=== PATIENT | female | born 1990 | race Caucasian/White ===

== ENCOUNTER → 2019-11-15 12:50 | Outpatient (BNVA) | payer MEDICAID, SELFPAY | PROVIDERS: Visit Provider Obstetrics & Gynecology | DX: Z32.01 Encounter for pregnancy test, result positive (principal) | CPT/HCPCS: 81025 ==

== ENCOUNTER 2021-10-23 23:07 | Inpatient (IN) | payer BC, MEDICAID, SELFPAY ==
[2021-10-23 22:47] VITALS: BP 138/88; PULSE 75
[2021-10-23 22:50] VITALS: BMI 54.9
[2021-10-23 22:56] VITALS: RESP 18
[2021-10-23 23:06] LABS: Basophils % 0.2 %; Eosinophils % 0.4 %; Hematocrit 35.8 % (37.0-47.0); Hemoglobin 11.4 g/dL (11.5-15.3); Lymphocytes # 1.9 10^3/uL (0.8-4.8); Lymphocytes % 19.7 %; Mean Corpuscular HGB Conc 31.8 g/dL (30.0-36.0); Mean Corpuscular Hemoglobin 27.8 pg (28.0-34.0); Mean Corpuscular Volume 87.3 fl (81-99); Mean Platelet Volume 13.5 fL (7.4-10.4); Monocytes # 0.5 10^3/uL (0.2-0.9); Monocytes % 5.4 %; Neutrophils # 7.05 10^3/uL (1.8-7.7); Neutrophils % 73.9 %; Nucleated Red Blood Cells % 0 %; Platelet Count 174 10^3/cmm (130-400); Red Cell Distribution Width 15.3 % (12.1-15.1); White Blood Count 9.6 10^3/uL (4.0-10.0)
[2021-10-24] VITALS (133 sets, daily range): BP systolic 118–153; BP diastolic 57–98; PULSE 62–96; TEMP 35.9–36.6; O2SAT 93–98
--- NOTE | 2021-10-24 00:18 | XRR_ITS ---
PROCEDURE INFORMATION: Exam: XR Abdomen Exam date and time: 10/24/2021 12:27 AM Age: 31 years old Clinical indication: Screening exam; Post surgical status; Patient HX: Instrument/sponge check S/P emergency csection. ; Additional info: Post op stat c section TECHNIQUE: Imaging protocol: XR of the abdomen. Views: Frontal supine view of the abdomen. 1 View. COMPARISON: No relevant prior studies available. FINDINGS: Gastrointestinal tract: No bowel dilation. Bones/joints: There is diastasis of the pubic symphysis. Bones are otherwise unremarkable. Soft tissues: No radiopaque foreign body. XR/XR abdomen 1V* [id number] IMPRESSION: No radiopaque foreign body.
--- NOTE | 2021-10-24 01:03 | P.PCNOB_ITS ---
Delivery Note: Date of delivery: October 24, 2021 Pre-delivery diagnoses: Term . No care Post-delivery diagnoses: Term delivered Procedure: Emergency repeat low transverse delivery Delivering Physician: Cornelio Rojas MD Estimated blood loss (mL): 800 Pre-Delivery Course: Mrs. Torres 31-year-old female with 2 previous deliveries and 0nd with an EGA of approximately 41+4 weeks appr oximately as patietn refers unknow LMP but know she conceived on 21 January 2021 with no care came to labor and delivery in active labor with a dilation of 8 cm 100% effacement -4. Delivery: I was called by the nurse informing the patient was 9 cm in dilation. Upon my arrival the Labor and Delivery and examined the patient she was fully dilated 100% effacement but at a station of -4, and umbilical cord could be felt on My hand supporting the 's head off the umbilical cord. The patient was immediately told not to push but she did not complied and she kept pushing when the forward bag ruptured and amniotic fluid with meconium was noted when the umbilical cord prolapsed. Her and her were immediately informed of the emergency and the patient was taken to the operating room and general anesthesia was initiated. She was placed in the dorsal supine position with a left lateral tilt. The abdomen was prepped and draped in the usual sterile manner. A Pfannenstiel skin incision was made with the scalpel and carried through to the underlying layer of fascia with the Bovie. The fascia was nicked in the midline and the incision extended laterally with several different scissors that seemed to not cut. The superior aspect of the fascial incision was then grasped with Mayelin clamps and elevated and the underlying rectus muscle dissected off bluntly. Attention was then turned to the inferior aspect of the incision which, in similar fashion, was grasped and tented up with Mayelin clamps and the rectus muscle dissected bluntly. The rectus muscles were then in the midline and the peritoneum identified, tented up and entered sharply with Metzenbaum scissors. The peritoneal incision was then extended superiorly and inferiorly with good visualization of the bladder. A small windows of dehicense was noted on the uterus. The uterus was incised in a low transverse fashion with the scalpel. The uterine incision was then extended with the bandage scissors. The infant was then delivered in the cephalic presentation atraumatically at 2351 hours. The nose and the mouth were suctioned with bulb and the cord clamped and cut. And the infant was handed over immediately to the manager heavy equipment on-call. The cord was normal and had three vessels. Amniotic fluid was with meconium. APGARs 8/8. The placenta was then removed manually and the uterus exteriorized and cleared of all clots and debris. The uterine incision was repaired with 0 Vicryl in a running-locked fashion. A second layer of the same suture was used to obtain excellent hemostasis. The gutters were cleared of all clots. Excellent hemostasis was noted. The uterus was then returned to the abdomen. The rectus muscles were approximated with 3-0 chromic gut. The fascia was reapproximated with 0 Vicryl in an interrupted midlock running fashion. The skin was closed with Insorb?s subcuticular absorbable suresh. The patient tolerated the procedure well. The sponge, lap and needle counts were correct times three. X-ray of the abdomen showed no instruments or laps. History History History 3 Term 2 Miscarriages/Ectopic 0 0 Living Children 2 A&P Assessment and plan (1) No care in current : Status: Acute (2) Term delivered: Status: Acute (3) Previous delivery affecting : Status: Acute Coding Level of Care Code Acute Electrical Controls Designer for Chg Fwd Diagnoses No care in current O09.30 Term delivered O80 Previous delivery affecting O34.219
[2021-10-24 02:43] LABS: Amphetamines Screen Urine Negative (Negative); Barbiturates Screen Urine Negative (Negative); Benzodiazepines Screen Urine Negative (Negative); Cocaine Screen Urine Negative (Negative); Opiate Screen Urine Negative (Negative); PCP Screen Urine Negative (Negative); THC Screen Urine Negative (Negative)
[2021-10-24] MEDS: dextrose 5%-lactated ringers 1,000 ML 125 ML IV ×2 (05:44→14:11)
--- NOTE | 2021-10-24 05:54 | PC.NURSE ---
IV patent and intact, patient demands removal of IV at this time. IV in L hand remains.
[2021-10-24] MEDS: ketorolac 30 mg/mL INJ IVP ×3 (07:34→21:06)
--- NOTE | 2021-10-24 08:31 | ANE.PACU2 ---
Inpatient post-anesthesia follow up: Airway intact: Yes Vital signs: Temperature 96.6 F Pulse Rate 79 Respiratory Rate 18 Blood Pressure 124/67 Pulse Oximetry 96 Oxygen Delivery Me thod Room Air Oxygen Flow Rate Fraction of Inspir ed Oxygen Hydration adequate: Yes Nausea and vomiting: No Pain level: 4 Mental status: Baseline
--- NOTE | 2021-10-24 08:56 | PC.NURSE ---
No care after 7 weeks
[2021-10-24] MEDS: HYDROcodone-acetaminophen 5-325 mg Tablet PO ×2 (13:22→18:16)
[2021-10-24 16:22] LABS: Hematocrit 28.2 % (37.0-47.0); Hemoglobin 8.9 g/dL (11.5-15.3); Mean Corpuscular HGB Conc 31.6 g/dL (30.0-36.0); Mean Corpuscular Hemoglobin 27.9 pg (28.0-34.0); Mean Corpuscular Volume 88.4 fl (81-99); Platelet Count 155 10^3/cmm (130-400); Red Blood Count 3.19 10^6/uL (4.1-5.3); Red Cell Distribution Width 15.3 % (12.1-15.1); White Blood Count 10.3 10^3/uL (4.0-10.0)
[2021-10-24 16:24] LABS: Mean Platelet Volume 13.5 fL (7.4-10.4)
[2021-10-24] MEDS: docusate sodium 100 mg Capsule PO (18:15)
[2021-10-24] MEDS: ferrous sulfate EC 325 mg Tablet PO (18:16)
[2021-10-25] VITALS (9 sets, daily range): BP systolic 126–142; BP diastolic 71–79; PULSE 83–103; RESP 16–18; TEMP 36–36.3; O2SAT 97
--- NOTE | 2021-10-25 01:57 | PM.OBGYHP ---
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 Declined repeat cesaren delivery but EMERGENCY CD performed. Present Details : 4 Para: 3 Review of Systems General: Reports: 10 or more systems reviewed and unremarkable except in HPI and below Const: Denies: fever(s) or chills ENMT: Denies: throat pain Card: Denies: chest pain Resp: Denies: dyspnea, productive cough or non-productive cough GI: Reports: abdominal pain (contractions) : Reports: pelvic pain (contractions); Denies: flank pain, difficulty voiding, dysuria, urinary frequency, urinary urgency, urinary incontinence, genital lesions, genital pruritis, vaginal dryness, vaginal odor, vaginal bleeding, vaginal discharge, dysmenorrhea, irregular period, metrorrhagia, amenorrhea, prolapse symptoms or dyspareunia Psych: Reports: anxiety and mood swings Medications/Allergies Home Medications Medication Instructions Recorded Confirmed Last Taken Type No Known Home Medications 10/24/21 10/24/21 Unknown History Allergies Allergy/AdvReac Type Severity Reaction Status Date / Time adhesive tape Allergy Skin Verified 10/24/21 04:30 irritation 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 PFSH: Medical History (Updated 10/26/21 @ 09:24 by Cornelio Rojas MD) 15 weeks gestation of Morbid obesity with BMI of 40.0-44.9, adult Surgical History (Updated 10/25/21 @ 17:51 by Cornelio Rojas MD) H/O section 1--06/2014 2--07/2015 H/O wisdom tooth extraction (~2009) Family History Grandmother Diabetes Paternal grandmother Breast cancer Paternal grandmother- dx at 60 y/o Maternal grandmother- dx at 60 y/o Colon cancer Paternal grandmother Family history of thyroid problem Paternal grandmother Maternal grandmother Denies family history of Ovarian cancer Heart disease Hyperlipidemia Hypertension Uterine cancer Stroke Social History Smoking and tobacco status: never smoked Alcohol intake: never History History History 3 Term 2 Miscarriages/Ectopic 0 0 Living Children 2 Care DENZEL 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 Lungs: Clear to auscultation bilaterally. Heart: Regular rhythm and rate. Abdomen: Gravid, full the height equals dates, nontender. 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 Extremities: no edema, no cyanosis, no calves pain. heart tracing: Basal rate: 100 bpm, Variability: moderate, Accelerations: present, Decelerations: early, Contraction: q3min. Urinary Catheter Management: Guerra Latex: Cath Placed During This Visit: yes, but has since been removed by the nurse Reason for Continuing Indwelling Catheter: Decision to DC Catheter Urinary Catheter Date of Insertion: 10/24/21 Urinary Catheter Time of Insertion: 00:45 Date Urinary Catheter Removed: 10/24/21 Time Urinary Catheter Discontinued: 16:30 Data : 10/24/21 16:10 A&P Assessment and plan (1) Active labor at term: No care came to labor and delivery in active labor. Dilation of 10 cm, 100% effacement, station -4. Cord prolapse, emergency delivery. Status: Acute (2) Previous delivery affecting : Status: Acute (3) No care in current : Status: Acute Attestations Medical Necessity Statement*: In my professional opinion per admitting diagnosis Coding Level of Care Code Acute Cloud Systems Architect for g Fwd Diagnoses Active labor at term Previous delivery affecting O34.219 No care in current O09.30
[2021-10-25] MEDS: HYDROcodone-acetaminophen 5-325 mg Tablet PO ×4 (04:29→18:03)
[2021-10-25] MEDS: ferrous sulfate EC 325 mg Tablet PO ×2 (08:48→18:03)
[2021-10-25] MEDS: docusate sodium 100 mg Capsule PO ×2 (08:48→18:03)
[2021-10-25] MEDS: prenatal vitamin Capsule 1 CAP PO (08:49)
[2021-10-25] MEDS: ibuprofen 800 mg tablet PO ×2 (15:20→21:18)
--- NOTE | 2021-10-25 17:48 | P.PN_ITS ---
Subjective Subjective: Mrs. Dary Trujillo 31-year-old female status post repeat delivery postoperative day 1. Refers being a little tender Vitals/I&O/Wt Last Vital Signs Temp 97.3 F L 10/25/21 15:16 Pulse 94 10/25/21 15:17 Resp 17 10/25/21 15:17 BP 126/75 10/25/21 15:16 Pulse Ox 97 10/25/21 15:17 10/25/21 10/25/21 10/25/21 06:59 14:59 22:59 Intake Total 600 / 600 Output Total 600 / 2600 800 / 800 Balance -600 / -510.417 -200 / -200 Weight last 48 hrs Weight 140.614 kg Physical Exam Narrative: GA: Alert and oriented ?3. HEENT: WNL. Heart: Regular rate and rhythm. Breasts: engorged Nipples - skin intact Lungs: Clear to auscultation bilaterally. Abdomen: Bowel sounds present, minimal tenderness, incision clean and dry, no redness, pain or edema. Uterine fundus below umbilicus. No Fundal Tenderness. 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 Extremities: No edema, no cyanosis, no calves pain. Urinary Catheter Management: Guerra Latex: Cath Placed During This Visit: yes, but has since been removed by the nurse Reason for Continuing Indwelling Catheter: Decision to DC Catheter Urinary Catheter Date of Insertion: 10/24/21 Urinary Catheter Time of Insertion: 00:45 Date Urinary Catheter Removed: 10/24/21 Time Urinary Catheter Discontinued: 16:30 Data : 10/24/21 16:10 A&P Assessment and plan (1) Status post delivery: Posterior 31-year-old female status post repeat low transverse delivery postop day 1. She is afebrile and hemodynamically stable. Tolerating diet well. Ambulating without difficulty. Breast-feeding without difficulty. Status: Acute (2) Term delivered: Status: Acute Plan Continue postop observation. Encourage ambulation. Progress diet. Attestations Medical Necessity Statement*: In my professional opinion per admitting diagnosis Coding Level of Care Code Acute Systematic Theology Professor for Chg Fwd Diagnoses Status post delivery Z98.891 Term delivered O80
[2021-10-26] VITALS (8 sets, daily range): BP systolic 134–161; BP diastolic 73–91; PULSE 77–103; RESP 16; TEMP 36–36.5
[2021-10-26] MEDS: HYDROcodone-acetaminophen 5-325 mg Tablet PO ×2 (04:59→11:17)
[2021-10-26] MEDS: ferrous sulfate EC 325 mg Tablet PO (08:25)
[2021-10-26] MEDS: ibuprofen 800 mg tablet PO (08:25)
[2021-10-26] MEDS: prenatal vitamin Capsule 1 CAP PO (08:25)
[2021-10-26] MEDS: docusate sodium 100 mg Capsule PO (08:25)
--- NOTE | 2021-10-26 09:30 | PM.OBGYDC ---
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 Torres 31-year-old female with 2 previous deliveries and and 1 with an EGA of approximately 41+4 weeks approximately as the patient refers unknow LMP but know she conceived on 21 January 2021. With no care she came to labor and delivery in active labor with a dilation of 8 cm 100% effacement -4. She progressed rapidly. During examination when the patient was prepared for delivery intact membranes felt with umbilical cord. The patient instructed not to push but she did and the membranes rupture resulting in cord prolapse and an emergency delivery was performed complicated by faulty instruments scissors not working which delayed delivery. She delivered a male infant Apgars 8/8 with a birthweight of 4470 g. She is afebrile and hemodynamically stable postoperative day 2. Tolerating diet well. Ambulating without difficulty. Breast-feeding without difficulty. Refer will be getting a vasectomy for contraception. Information Peripartum Data: Delivery Method: Physical Exam Narrative: GA: Alert and oriented ?3. HEENT: WNL. Heart: Regular rate and rhythm. Breasts: engorged Nipples - skin intact Lungs: Clear to auscultation bilaterally. Abdomen: Bowel sounds present, minimal tenderness, incision clean and dry, no redness, pain or edema. Uterine fundus below umbilicus. No Fundal Tenderness. RECOVERY ROOM NURSE: normal lochia. Extremities: No edema, no cyanosis, no calves pain. Urinary Catheter Management: Guerra Latex: Cath Placed During This Visit: yes, but has since been removed by the nurse Reason for Continuing Indwelling Catheter: Decision to DC Catheter Urinary Catheter Date of Insertion: 10/24/21 Urinary Catheter Time of Insertion: 00:45 Date Urinary Catheter Removed: 10/24/21 Time Urinary Catheter Discontinued: 16:30 History History History 3 Term 2 Miscarriages/Ectopic 0 0 Living Children 2 Discharge Data Studies Completed and Pending Completed Studies During Hospitalization Category Date Time Status XR abdomen 1V* 11433 Stat Exams 10/24/21 00:18 Completed Pending at discharge Category Date Time Status Complete Crossmatch Stat Lab 10/23/21 22:56 Results Rho D Immune Globulin Stat Lab 10/23/21 22:56 Results Type and Screen Stat Lab 10/23/21 22:56 Results Radiology Impressions Abdomen X-Ray 10/24/21 00:18 IMPRESSION: No radiopaque foreign body. Laboratory Results WBC 10.3 10^3/uL (4.0-10.0) H 10/24/21 16:10 RBC 3.19 10^6/uL (4.1-5.3) L 10/24/21 16:10 Hgb 8.9 g/dL (11.5-15.3) L 10/24/21 16:10 Hct 28.2 % (37.0-47.0) L 10/24/21 16:10 MCV 88.4 fl (81-99) 10/24/21 16:10 MCH 27.9 pg (28.0-34.0) L 10/24/21 16:10 MCHC 31.6 g/dL (30.0-36.0) 10/24/21 16:10 RDW 15.3 % (12.1-15.1) H 10/24/21 16:10 Plt Count 155 10^3/cmm (130-400) 10/24/21 16:10 MPV 13.5 fL (7.4-10.4) H 10/24/21 16:10 Neut % (Auto) 73.9 % 10/23/21 22:56 Lymph % (Auto) 19.7 % 10/23/21 22:56 Carbon % (Auto) 5.4 % 10/23/21 22:56 Eos % (Auto) 0.4 % 10/23/21 22:56 Baso % (Auto) 0.2 % 10/23/21 22:56 Neut # (Auto) 7.05 10^3/uL (1.8-7.7) 10/23/21 22:56 Lymph # (Auto) 1.9 10^3/uL (0.8-4.8) 10/23/21 22:56 Carbon # (Auto) 0.5 10^3/uL (0.2-0.9) 10/23/21 22:56 Eos # (Auto) 0.0 10^3/uL (0.0-0.8) 10/23/21 22:56 Baso # (Auto) 0.0 10^3/uL (0.0-0.1) 10/23/21 22:56 Nucleated RBC % (auto) 0 % 10/23/21 22:56 Nucleated RBCs # 0.0 /100WBC 10/23/21 22:56 Urine Opiates Screen Negative ng/mL (Negative) 10/24/21 01:00 Ur Barbiturates Screen Negative ng/mL (Negative) 10/24/21 01:00 Ur Phencyclidine Scrn Negative ng/mL (Negative) 10/24/21 01:00 Ur Amphetamines Screen Negative ng/mL (Negative) 10/24/21 01:00 U Benzodiazepines Scrn Negative ng/mL (Negative) 10/24/21 01:00 Urine Cocaine Screen Negative ng/mL (Negative) 10/24/21 01:00 U Marijuana (THC) Screen Negative ng/mL (Negative) 10/24/21 01:00 Blood Type O Negative 10/23/21 22:56 Rho(D) Type Negative 10/23/21 22:56 Antibody Screen Negative 10/23/21 22:56 Screen Negative (Negative) 10/24/21 16:14 Vitals Last Vital Signs Temp 97.7 F 10/26/21 08:27 Pulse 103 H 10/26/21 08:27 Resp 16 10/26/21 04:45 BP 143/79 10/26/21 08:27 Pulse Ox 97 10/25/21 15:17 Discharge Plan Discharge Patient Disposition: Home Condition: Stable Prescriptions: New hydrocodone-acetaminophen 5-325 mg tablet 1 tab PO Q4H PRN (Reason: pain) Qty: 30 0RF ferrous sulfate [Iron (ferrous sulfate)] 325 mg (65 mg iron) tablet 325 mg PO BID Qty: 60 0RF ibuprofen 800 mg tablet 800 mg PO TID PRN (Reason: pain) Qty: 60 0RF acetaminophen 325 mg capsule 325 mg PO Q4H PRN (Reason: fever or pain) Qty: 60 0RF Continued No Known Home Medications 0RF Discharge Orders: Discharge Order (Routine); Ordered 10/26/21 Ordered By: Cornelio Rojas Referrals: Cornelio Rojas MD [Physician] - 11/01/21 9:15 am ( 2 week incision check with Dr Rojas will be 11/01/21 at 9:15am [address] Rojas will be Thursday12/06/21 at 9:45am ) Discharge Diet: Usual diet Discharge Activity: Limit activity as instructed Patient Instructions: Depression (DC), Bleeding (DC), Preeclampsia and Eclampsia After Delivery (GEN), OB [facility], OB Discharge Report, OB Food/Drug Interaction Guide, Opioid Safety, OB Home Care, OB Proud Parent Packet Activity Restrictions/Additional Instructions: 1. Please call [facility] on next working day to make your post-operative appointment in 2 weeks and visit in 6 weeks. 2. Please stay home until you come back to the clinic on first post-operative check up. 3. Please follow instructions on your medications CAREFULLY. 4. If you have abdominal incision, do not cover it unless dressing is necessary because of drainage. OK to shower, but avoid bath. Leave steri-strips until they fall off. If they are still on one week after surgery, you may remove them. 5. If you had vaginal surgery or vaginal repair, Dr. Rojas may instruct you to take SITZ bath. 6. Yellow, blood tinged odorous vaginal discharge is usually normal after hysterectomy or vaginal surgeries. 7. No sexual intercourse, tampons, or douches until you are completely released from the post-operative care. 8. Avoid constipation by eating right and maybe using some Metamucil or Milk of Magnesia. 9. All prescription refills are given during the working hours. Please do no wait till it runs out. Call the clinic at [phone] before your medication runs out. The clinic will get in touch with your doctor to prescribe medications if necessary. 10. Please remain within 40 mile radius from our hospital because emergencies do happen now and then during the post-operative period. 11. If you have stairs at home, take one step at a time slowly and minimize the number of trips. It helps to stay in one floor for the next few days. No lifting except what you can lift by one hand until you are released from the post-operative care. 12. Driving is discouraged until you are well healed. It may be 3-4 weeks before you feel strong enough to drive. You should be able to turn and look through the rear window without pain and you should be able to push the brake pedal very hard without pain before you drive. No fast rules, but SAFETY should be your primary concern. DO NOT drive if you are on sedating medications such as narcotics. 13. Call the clinic (during working hours) to make urgent appointment or go to the Emergency room, if any of the following occurs: i. Vaginal bleeding becomes heavy, more than a period. ii. Incision becomes red and sore, or drains pus. iii. Your temperature is over 100.4 or you have chill. iv. IV site becomes red and swollen (a little ``knot?? is usually OK) v. Persistent nausea and vomiting vi. Persistent constipation or diarrhea vii. Rash or allergic reaction to medications. 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
== END 2021-10-26 11:45 | disposition home or self-care (01) | DRG 788 ==
LOC: OPOB 23:08 → OBGYN 23:08
PROVIDERS: Admitting Provider Obstetrics & Gynecology; Visit Provider Obstetrics & Gynecology
PROC: (CPT 59514; principal; 2021-10-23 23:45)
DX: O69.0XX0 Labor and delivery complicated by prolapse of cord, not applicable or unspecified (principal); O48.0 Post-term pregnancy; Z3A.41 41 weeks gestation of pregnancy; O77.0 Labor and delivery complicated by meconium in amniotic fluid; O99.214 Obesity complicating childbirth; E66.01 Morbid (severe) obesity due to excess calories; Z37.0 Single live birth; O34.219 Maternal care for unspecified type scar from previous cesarean delivery
CPT/HCPCS: 36415; 51702; 74018; 80306; 85025; 85027; 85460; 86850; 86900; 99211; J0330; J1170; J1885; J2704; J3010